=== PATIENT | female | born 1955 | race Caucasian/White ===

== ENCOUNTER → 2017-10-26 11:23 | Outpatient (CLI) | payer OTHER, SELFPAY ==
--- NOTE | 2017-10-26 | DI.MG.S_ITS ---
BILATERAL DIGITAL SCREENING MAMMOGRAM 3D/2D WITH CAD: 10/26/2017 CLINICAL: Routine screening. Family history of breast cancer. Comparison is made to exams dated: 09/02/2015 mammogram, 01/01/2009 mammogram, and 11/04/2007 mammogram - [facility]. The tissue of both breasts is extremely dense, which lowers the sensitivity of mammography. Current study was also evaluated with a Computer Aided Detection (CAD) system. There is architectural distortion in the left breast at 12 o'clock posterior depth. No other significant masses, calcifications, or other findings are seen in either breast. There has been no significant interval change. IMPRESSION: INCOMPLETE: NEEDS ADDITIONAL IMAGING EVALUATION The architectural distortion in the left breast is indeterminate. Additional views with possible ultrasound are recommended. This exam was interpreted at Station ID: [id number]. NOTE: For mammograms, a report in lay terms will be sent to the patient. Approximately 15% of breast malignancies will not be visualized mammographically. In the management of a palpable breast mass, a negative mammogram must not discourage biopsy of a clinically suspicious lesion. Electronically Signed By: Veronica thomason/:10/26/2017 12:13:46 letter sent: Additional Imaging Needed ACR BI-RADS Category 0: Incomplete 3340F
== END ==
PROVIDERS: Family Provider Family Medicine; PCP Family Medicine; Visit Provider Family Medicine
DX: Z80.3 Family history of malignant neoplasm of breast (principal)
CPT/HCPCS: 77063; 77067

== ENCOUNTER → 2017-11-14 14:23 | Outpatient (CLI) | payer OTHER, SELFPAY ==
--- NOTE | 2017-11-14 | DI.MG.S_ITS ---
UNILATERAL LEFT DIGITAL DIAGNOSTIC MAMMOGRAM 3D/2D WITH ADDITIONAL VIEWS: 11/14/2017 CLINICAL: Additional evaluation requested from prior study. Comparison is made to exams dated: 10/26/2017 mammogram, 09/02/2015 mammogram, and 01/01/2009 mammogram - [facility]. The tissue of the left breast is extremely dense, which lowers the sensitivity of mammography. There is irregular equal density architectural distortion with an indistinct margin in the left breast at 12 o'clock middle depth. This is less prominent. No other significant masses or calcifications are seen in the breast. IMPRESSION: INCOMPLETE: NEEDS ADDITIONAL IMAGING EVALUATION The irregular equal density architectural distortion in the left breast is indeterminate. An ultrasound is recommended. This exam was interpreted at Station ID: [id number]. NOTE: For mammograms, a report in lay terms will be sent to the patient. Approximately 15% of breast malignancies will not be visualized mammographically. In the management of a palpable breast mass, a negative mammogram must not discourage biopsy of a clinically suspicious lesion. Electronically Signed By: Rafael jimenez/anish:11/14/2017 15:13:29 letter sent: Need Ultrasound ACR BI-RADS Category 0: Incomplete 3340F
--- NOTE | 2017-11-14 | DI.US.S_ITS ---
ULTRASOUND OF LEFT BREAST: 11/14/2017 CLINICAL: Follow up from addtional views. Comparison is made to exams dated: 11/14/2017 mammogram, 10/26/2017 mammogram, and 09/02/2015 mammogram - [facility]. Real-time ultrasound of the left breast was performed on the area of interest. IMPRESSION: NEGATIVE There is no sonographic evidence of malignancy. There is no abnormality seen in the left breast to correspond with the mammography finding at 12 o'clock. A 1 year screening mammogram is recommended. This exam was interpreted at Station ID: [id number]. Electronically Signed By: Rafael jimenez/anish:11/14/2017 19:17:42 letter sent: Normal Exam Ultrasound BI-RADS: 1 Negative
== END ==
PROVIDERS: Family Provider Family Medicine; PCP Family Medicine; Visit Provider Family Medicine
DX: R92.8 Other abnormal and inconclusive findings on diagnostic imaging of breast (principal)
CPT/HCPCS: 76642; 77065; G0279

== ENCOUNTER 2017-12-06 13:36 | Emergency (ER) | payer OTHER, SELFPAY ==
[2017-12-06 13:46] VITALS: BP 136/76; PULSE 74; RESP 18; O2SAT 100
--- NOTE | 2017-12-06 15:36 | DI.CT.S_ITS ---
PROCEDURE: CT HEAD/BRAIN WO CON INDICATIONS: neuro changes TECHNIQUE: Noncontrast 4.5 mm thick angled axial sections acquired from the foramen magnum to the vertex, with coronal and sagittal reformats. For radiation dose reduction, the following was used: automated exposure control, adjustment of mA and/or kV according to patient size. COMPARISON: None. FINDINGS: Image quality: Excellent. CSF spaces: Basal cisterns are patent. No extra-axial fluid collections. Ventricles are normal in size and shape. Brain: No midline shift. No intracranial masses or hemorrhage. Peters-white matter interface is normal. Skull and face: Calvarium and visualized facial bones are intact, without suspicious lesions. Sinuses: Visualized sinuses and mastoids are clear. IMPRESSION: Source of altered mental status is not seen. Normal for age. Dictated by: Ronal Arnold M.D. on 12/06/2017 at 16:13 Approved by: Ronal Arnold M.D. on 12/06/2017 at 16:13
--- NOTE | 2017-12-06 18:22 | ED.NEUROSD ---
HPI - Neuro Symptoms/Deficit General Chief Complaint: Neuro Symptoms/Deficit Stated Complaint: states weird cognition issues Time Seen by Provider: 12/06/17 18:10 Source: patient Mode of arrival: ambulatory Limitations: no limitations History of Present Illness HPI Narrative: Patient is a 62-year-old female who presents with altered mental status. 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 she was able to speak to co-workers without difficulty she was able to drive herself home nobody noticed that she if she had a facial droop or not she did not have any visual changes dizziness lightheadedness chest pain or heart palpitations. Her who is an EMT did not see any signs of stroke. She took a nap her symptoms did seem to resolve but he brought her here to just check her out. She overall is feeling better but just kind of fatigued. She currently has no symptoms now. She was having thyroid issues her only medical history is hypothyroid on they did not change the dose of levothyroxine a chain time she took it she is post take it on an empty stomach she was complaining it with her iron. Review of Systems Review of Systems All systems reviewed & are unremarkable except as noted in HPI and below Constitutional Reports as per HPI, Denies body ache(s), Denies chills and Denies fever(s) Eyes Denies change in vision, Denies eye discharge, Denies irritation and Denies loss of vision Cardiovascular Denies chest pain, Denies irregular heart rhythm, Denies lightheadedness, Denies palpitations, Denies dyspnea, Denies dyspnea on exertion and Denies orthopnea Respiratory Denies cough, Denies dyspnea, Denies dyspnea on exertion and Denies wheezing Genitourinary Denies hematuria, Denies flank pain, Denies urinary incontinence and Denies urinary urgency Musculoskeletal Denies back pain, Denies muscle weakness, Denies numbness and Denies tingling Integumentary/Breasts Denies pruritus, Denies erythema, Denies rash and Denies wounds Neurologic Denies loss of vision, Denies numbness and Denies tingling Endocrine Denies palpitations Allergic/Immunologic Denies wheezing PFSH Medical History Hypothyroid (Acute) Social History Smoking Status: Never smoker Exam Initial Vital Signs Initial Vital Signs: Vital Signs Pulse Rate 74 12/06/17 13:46 Respiratory Rate 18 12/06/17 13:46 Blood Pressure 136/76 12/06/17 13:46 Pulse Oximetry 100 12/06/17 13:46 GENERAL: Well-appearing, well-nourished and in no acute distress. HEENT: Head atraumatic,EOMI, pupils reactive, face symmetric CARDIOVASCULAR: Regular rate and rhythm without murmurs, rubs or gallops. RESPIRATORY: Breath sounds equal bilaterally, no wheezes rales or rhonchi. ABDOMEN: Soft, nontender. Normoactive bowel sounds all 4 quadrants. No guarding or rebound. : No CVA tenderness EXTREMITIES: Normal range of motion, no clubbing or edema. Neurovascularly intact NEUROLOGICAL: Alert and oriented x4.Normal gait and speech. Cranial nerves II through XII grossly intact. Good lyfnot-os-vvip, good vtrv-zf-nxlr, strength equal bilaterally, no dysarthria or aphasia, sensation in tact to soft touch bilaterally, no visual changes, no facial droop SKIN: Warm, dry, no laceration, no petechiae, no rashes or lesions. Scores NIH Stroke Scale Level of Conciousness: Alert, keenly responsive Ask month/age: Answers both questions correctly. Open/close eyes, close hand: Performs both tasks correctly Best gaze horizontal: Normal Visual steward: No visual loss Facial palsy: Normal symetrical movement Left arm drift: No drift for full 10 sec Right arm drift: No drift for full 10 sec Left leg drift: No drift for full 10 sec Right leg drift: No drift for full 10 sec Limb ataxia: Absent Sensory on face/arms/legs: Normal, no sensory loss Best language: No aphasia, normal Dysarthria: Normal Extinction or inattention: No abnormality Total NIH Stroke scale score: 0 Course Orders Ordered: ED Orders 12/06/17 15:36 CT head/brain wo con Stat 12/06/17 18:55 Basic Metabolic Panel Stat Complete Blood Count AUTO DIFF Stat Vital Signs - 8 hr 12/06/17 13:46 12/06/17 19:45 Temperature 98.4 F Pulse Rate 74 72 Respiratory Rate 18 16 Blood Pressure 136/76 130/70 Pulse Oximetry 100 99 MDM - Neuro Symptoms/Deficit Lab Data Attestation: I reviewed the patient's lab results. Result diagrams: 12/06/17 18:55 12/06/17 18:55 Lab Results 12/06/17 12/06/17 Range/Units 18:55 18:55 WBC 7.2 (4.5-11.0) X10^3/uL RBC 4.68 (4.0-5.2) X10^6/uL Hgb 14.1 (12.0-16.0) g/dL Hct 42.1 (36-46) % MCV 89.8 (80-100) fL MCH 30.0 (26-34) PG MCHC 33.4 (30-36) % RDW 12.6 (11.6-14.8) % Plt Count 293 (150-400) X10^3/uL Neut % (Auto) 61.8 (50-75) % Lymph % (Auto) 26.7 (25-40) % [place] % (Auto) 7.1 (3-14) % Eos % (Auto) 2.9 (2-4) % Baso % (Auto) 1.5 (0-2) % Neut # (Auto) 4400 (4172-7798) /uL Sodium 145 (137-145) mmol/L Potassium 3.7 (3.4-5.1) mmol/L Chloride 105 (98-107) mmol/L Carbon Dioxide 28 (22-32) mmol/L BUN 14 (7-17) mg/dL Creatinine 0.70 (0.52-1.04) mg/dL Estimated GFR > 60.0 (>60) mL/min BUN/Creatinine Ratio 20.0 (6-22) Glucose 110 (80-110) mg/dL Calcium 9.8 (8.4-10.2) mg/dL Imaging Data CT scan - head: Radiologist's impression: PROCEDURE: CT HEAD/BRAIN WO CON INDICATIONS: neuro changes TECHNIQUE: Noncontrast 4.5 mm thick angled axial sections acquired from the foramen magnum to the vertex, with coronal and sagittal reformats. For radiation dose reduction, the following was used: automated exposure control, adjustment of mA and/or kV according to patient size. COMPARISON: None. FINDINGS: Image quality: Excellent. CSF spaces: Basal cisterns are patent. No extra-axial fluid collections. Ventricles are normal in size and shape. Brain: No midline shift. No intracranial masses or hemorrhage. Peters-white matter interface is normal. Skull and face: Calvarium and visualized facial bones are intact, without suspicious lesions. Sinuses: Visualized sinuses and mastoids are clear. IMPRESSION: Source of altered mental status is not seen. Normal for age. Dictated by: Ronal Arnold M.D. on 12/06/2017 at 16:13 Approved by: Ronal Arnold M.D. on 12/06/2017 at 16:13 [facility] Narrative Medical decision making narrative: Patient's symptoms have completely resolved. She had some mild confusion but no other focal deficits. I did discuss slight possibility of TIA however not completely convinced. She overall is feeling better. All lab work is reviewed no sign or symptoms of infection anemia or dehydration. I discussed all findings with the patient and spouse, Education has been performed regarding treatment plan, diagnosis, warning signs and symptoms and all concerns have been addressed. Verbally agree with and understood all of the above. Discharge Plan Departure Patient Disposition: Home Clinical Impression: Altered mental status, unspecified Discharge Date/Time: 12/06/17 19:46 Interventions: ED Discharge Assessment Last Done: 12/06/17 19:45 Instructions: DI for Transient Ischemic Attack Activity Restrictions/Additional Instructions: *You have been diagnosed with altered mental status *What to do: Symptoms have now resolved. No sign of infection or dehydration. Head CT is negative. Possible TIA which is a minor stroke, however this does seem unlikely based on your symptoms *Continue to take medications as directed *Follow up with your primary care provider in 2-3 days *Return to ER if you should have weakness, facial droop, difficulty speaking, vision changes or any new, worsening or concerning symptoms Referrals: Larry Nelson MD [Primary Care Provider] -
[2017-12-06 19:04] LABS: Add Manual Diff / Slide Review NO; Basophils Percent Auto 1.5 % (0-2); Eosinophils Percent Auto 2.9 % (2-4); Hematocrit 42.1 % (36-46); Hemoglobin 14.1 g/dL (12.0-16.0); Lymphocytes Percent Auto 26.7 % (25-40); Mean Corpuscular HGB Conc 33.4 % (30-36); Mean Corpuscular Volume 89.8 fL (80-100); Monocytes Percent Auto 7.1 % (3-14); Neutrophils Absolute Auto 4400 /uL (3000-5900); Neutrophils Percent Auto 61.8 % (50-75); Platelet Count 293 X10^3/uL (150-400); Red Blood Cell Count 4.68 X10^6/uL (4.0-5.2); Red Cell Distribution Width 12.6 % (11.6-14.8); White Blood Cell Count 7.2 X10^3/uL (4.5-11.0)
[2017-12-06 19:13] LABS: Blood Urea Nitrogen 14 mg/dL (7-17); Calcium 9.8 mg/dL (8.4-10.2); Carbon Dioxide 28 mmol/L (22-32); Chloride 105 mmol/L (98-107); Estimated Glomerular Filt Rate > 60.0 mL/min (>60); Glucose 110 mg/dL (80-110); HEMOLYSIS 20 (0-50); Potassium 3.7 mmol/L (3.4-5.1); Sodium 145 mmol/L (137-145)
[2017-12-06 19:45] VITALS: BP 130/70; PULSE 72; RESP 16; TEMP 36.9; O2SAT 99
== END 2017-12-06 19:46 | disposition home or self-care (01) ==
PROVIDERS: Emergency Provider Emergency Medicine; Family Provider Family Medicine; PCP Family Medicine
DX: R41.82 Altered mental status, unspecified (principal)
CPT/HCPCS: 36415; 70450; 80048; 85025; 99282; 99284; 99291

== ENCOUNTER → 2018-09-16 11:00 | Outpatient (CLI) | payer OTHER, SELFPAY ==
--- NOTE | 2018-09-16 11:03 | DI.RAD.S_ITS ---
PROCEDURE: XR RIBS LT MIN 3V W CXR1V INDICATIONS: LEFT RIB PAIN S/P FALL TECHNIQUE: 2 views of the left ribs were acquired, along with a single view chest. COMPARISON: None. FINDINGS: Surgical changes and devices: None. Bones and chest wall: No fractures or dislocations. Scoliosis is present. Diffuse spondylosis Lungs and pleura: No pleural effusions or pneumothorax. Lungs appear clear. Mediastinum: Mediastinal contours appear normal. Heart size is normal. IMPRESSION: No rib fracture radiographically visualized Dictated by: Aldo Becerra M.D. on 09/16/2018 at 13:14 Approved by: Aldo Becerra M.D. on 09/16/2018 at 13:18
== END ==
PROVIDERS: PCP Family Medicine; Visit Provider Family Medicine
DX: R07.81 Pleurodynia (principal); W19.XXXA Unspecified fall, initial encounter
CPT/HCPCS: 71101

== ENCOUNTER → 2018-10-08 07:00 | Outpatient (CLI) | payer OTHER, SELFPAY ==
[2018-10-08 07:56] LABS: Alanine Aminotransferase 16 IU/L (9-52); Albumin 4.2 g/dL (3.5-5.0); Albumin Globulin Ratio 1.6 (1.0-2.8); Alkaline Phosphatase 117 U/L (38-126); Aspartate Aminotransferase 21 IU/L (14-36); BUN Creatinine Ratio 27.1 (6-22); Bilirubin Total 1.2 mg/dL (0.2-1.3); Blood Urea Nitrogen 19 mg/dL (7-17); Calcium 9.3 mg/dL (8.4-10.2); Carbon Dioxide 29 mmol/L (22-32); Chloride 103 mmol/L (98-107); Cholesterol 207 mg/dL (140-199); Estimated Glomerular Filt Rate > 60.0 mL/min (>60); Globulin 2.7 g/dL (1.7-4.1); Glucose 87 mg/dL (80-110); HDL Cholesterol 47 mg/dL (40-60); HEMOLYSIS < 15 (0-50); LDL Cholesterol Calculated 142 mg/dL (<100); Potassium 3.9 mmol/L (3.4-5.1); Sodium 142 mmol/L (137-145); Total Protein 6.9 g/dL (6.3-8.2); Triglycerides 89 mg/dL (35-150)
[2018-10-08 07:57] LABS: Hemoglobin A1C% w Est Avg Glu 5.3 % (4.0-6.0)
[2018-10-08 09:02] LABS: Thyroid Stimulating Hormone 0.97 uIU/mL (0.47-4.68)
== END ==
PROVIDERS: PCP Family Medicine; Visit Provider Family Medicine
DX: E03.9 Hypothyroidism, unspecified (principal); Z13.1 Encounter for screening for diabetes mellitus; E78.5 Hyperlipidemia, unspecified
CPT/HCPCS: 36415; 80053; 80061; 83036; 84443

== ENCOUNTER → 2020-08-03 15:49 | Outpatient (CLI) | payer OTHER, SELFPAY ==
--- NOTE | 2020-08-03 15:51 | DI.MG.S_ITS ---
BILATERAL DIGITAL SCREENING MAMMOGRAM 3D/2D WITH CAD: 08/03/2020 CLINICAL: Routine screening. Family history of breast cancer. Comparison is made to exams dated: 11/14/2017 mammogram, 10/26/2017 mammogram, and 09/02/2015 mammogram - [facility]. The tissue of both breasts is heterogeneously dense. This may lower the sensitivity of mammography. Current study was also evaluated with a Computer Aided Detection (CAD) system. No significant masses, calcifications, or other findings are seen in either breast. There has been no significant interval change. IMPRESSION: NEGATIVE There is no mammographic evidence of malignancy. A 1 year screening mammogram is recommended. This exam was interpreted at Station ID: [id number]. NOTE: For mammograms, a report in lay terms will be sent to the patient. Approximately 15% of breast malignancies will not be visualized mammographically. In the management of a palpable breast mass, a negative mammogram must not discourage biopsy of a clinically suspicious lesion. Electronically Signed By: Danielle smith/anish:08/03/2020 16:17:30 letter sent: Normal Exam ACR BI-RADS Category 1: Negative 3341F
== END ==
PROVIDERS: PCP Family Medicine; Referring Provider Family Medicine; Visit Provider Family Medicine
DX: Z12.31 Encounter for screening mammogram for malignant neoplasm of breast (principal); Z80.3 Family history of malignant neoplasm of breast
CPT/HCPCS: 77063; 77067

== ENCOUNTER → 2021-11-24 16:06 | Outpatient (CLI) | payer OTHER, SELFPAY ==
--- NOTE | 2021-11-24 16:14 | DI.MG.S_ITS ---
BILATERAL DIGITAL SCREENING MAMMOGRAM 3D/2D WITH CAD: 11/24/2021 CLINICAL: Routine screening. Family history of breast cancer. Comparison is made to exams dated: 08/03/2020 mammogram, 10/26/2017 mammogram, and 09/02/2015 mammogram - [facility]. Both breasts are heterogeneously dense, which may obscure small masses (category c / 51-75% glandular tissue). Current study was also evaluated with a Computer Aided Detection (CAD) system. No significant masses, calcifications, or other findings are seen in either breast. There has been no significant interval change. IMPRESSION: NEGATIVE There is no mammographic evidence of malignancy. A 1 year screening mammogram is recommended. Based on Tyrer-Cuzick model (a risk assessment model), the patient's lifetime risk is 24.3% and her 10 year risk is 12.3%. If a patient has an elevated risk, a more comprehensive evaluation should be considered and/or a referral to a genetic counselor. The [place] [employer], [employer] [place] [employer], and NCCN Guidelines advise the consideration of Breast MRI as an adjunct to screening mammography in patients whose Lifetime risk to develop breast cancer is 20% or higher. This exam was interpreted at Station ID: [id number]. NOTE: For mammograms, a report in lay terms will be sent to the patient. Approximately 15% of breast malignancies will not be visualized mammographically. In the management of a palpable breast mass, a negative mammogram must not discourage biopsy of a clinically suspicious lesion. Electronically Signed By: Veronica thomason/anish:11/25/2021 16:02:19 letter sent: Normal Exam ACR BI-RADS Category 1: Negative 3341F
== END ==
PROVIDERS: PCP Family Medicine; Referring Provider Family Medicine; Visit Provider Family Medicine
DX: I10 Essential (primary) hypertension (principal); Z12.31 Encounter for screening mammogram for malignant neoplasm of breast; Z80.3 Family history of malignant neoplasm of breast
CPT/HCPCS: 77063; 77067

== ENCOUNTER → 2023-04-18 15:22 | Outpatient (CLI) | payer OTHER, SELFPAY ==
--- NOTE | 2023-04-18 15:25 | DI.RAD.S_ITS ---
PROCEDURE: XR HIP W PEL IF DONE RT 2V INDICATIONS: bilateral hip pain, sciatica TECHNIQUE: AP pelvis with lateral view(s) of the right hip(s). COMPARISON: None. FINDINGS: Bones: No fractures or dislocations. Severe degenerative changes of the right hip with joint space narrowing, subchondral sclerosis and marginal spurring. Mild degenerative changes of the left hip. Diffusely decreased osseous mineralization. Pelvic ring appears intact. No suspicious bony lesions. Partially visualized spinal hardware. Soft tissues: The visualized bowel gas pattern is normal. No suspicious soft tissue calcifications. IMPRESSION: No acute osseous abnormalities. Severe degenerative changes of the right hip. Dictated by: Yaakov Rodriguez M.D. on 04/18/2023 at 16:27 Approved by: Yaakov Rodriguez M.D. on 04/18/2023 at 16:28
--- NOTE | 2023-04-18 15:25 | DI.RAD.S_ITS ---
PROCEDURE: XR FEMUR RT MIN 2V INDICATIONS: bilateral hip pain, sciatica TECHNIQUE: For views of the femur were acquired. COMPARISON: None. FINDINGS: Bones: No fractures or dislocations. Severe degenerative changes of the right hip No suspicious bony lesions. Soft tissues: No suspicious soft tissue calcifications or masses. IMPRESSION: No acute bony abnormality. Severe degenerative changes of the right hip. Dictated by: Yaakov Rodriguez M.D. on 04/18/2023 at 16:30 Approved by: Yaakov Rodriguez M.D. on 04/18/2023 at 16:32
--- NOTE | 2023-04-18 15:25 | DI.RAD.S_ITS ---
PROCEDURE: XR LUMBAR SPINE 2-3V INDICATIONS: bilateral hip pain, sciatica TECHNIQUE: 3 views of the lumbar spine were acquired. COMPARISON: None. FINDINGS: Bones: 5 [id number]-glb-lvtkhhp vertebrae are present. Focal dextrocurvature of the upper lumbar spine. Diffusely decreased osseous mineralization. There is multilevel facet arthropathy, worse at L4-5 and L5-S1. Mild multilevel disc height loss with degenerative endplate changes and spurring is present. No vertebral body compression fractures. No suspicious bony lesions. Spinal hardware in place and appears intact. Soft tissues: Overlying bowel gas pattern is normal. No suspicious soft tissue calcifications. IMPRESSION: Multilevel degenerative changes of the lumbar spine. No acute osseous abnormalities. Dictated by: Yaakov Rodriguez M.D. on 04/18/2023 at 16:28 Approved by: Yaakov Rodriguez M.D. on 04/18/2023 at 16:29
== END ==
PROVIDERS: PCP Family Medicine; Referring Provider Family Medicine; Visit Provider Family Medicine
DX: M54.31 Sciatica, right side (principal); M47.816 Spondylosis without myelopathy or radiculopathy, lumbar region; M47.817 Spondylosis without myelopathy or radiculopathy, lumbosacral region; M79.604 Pain in right leg; M25.551 Pain in right hip
CPT/HCPCS: 72100; 73502; 73552

== ENCOUNTER → 2023-05-01 13:31 | Outpatient (CLI) | payer OTHER, SELFPAY ==
[2023-05-01 14:53] LABS: Add Manual Diff / Slide Review NO; Basophils Absolute Auto 100 /uL (0-100); Basophils Percent Auto 0.8 % (0-2); Eosinophils Absolute Auto 100 /uL (0-450); Eosinophils Percent Auto 1.8 % (2-4); Hematocrit 36.5 % (36-46); Hemoglobin 12.2 g/dL (12.0-16.0); Lymphocytes Absolute Auto 1500 /uL (1100-4500); Lymphocytes Percent Auto 18.4 % (25-40); Mean Corpuscular HGB Conc 33.3 % (30-36); Mean Corpuscular Hemoglobin 26.8 PG (26-34); Mean Corpuscular Volume 80.5 fL (80-100); Monocytes Absolute Auto 600 /uL (0-900); Monocytes Percent Auto 6.9 % (3-14); Neutrophils Absolute Auto 5800 /uL (1500-7000); Neutrophils Percent Auto 72.1 % (50-75); Platelet Count 336 X10^3/uL (150-400); Red Blood Cell Count 4.53 X10^6/uL (4.0-5.2); Red Cell Distribution Width 15.3 % (11.6-14.8)
[2023-05-01 15:04] LABS: Albumin 4.4 g/dL (3.5-5.0); Blood Urea Nitrogen 15 mg/dL (7-17); Calcium 9.5 mg/dL (8.4-10.2); Carbon Dioxide 24 mmol/L (22-32); Chloride 103 mmol/L (98-107); Estimated Glomerular Filt Rate > 60 mL/min (>60); Glucose 112 mg/dL (80-110); HEMOLYSIS < 15 (0-50); Sodium 139 mmol/L (137-145)
[2023-05-01 15:11] LABS: Prealbumin 22.9 mg/dL (17.6-36.0)
[2023-05-01 16:42] LABS: Vitamin D 25 Hydroxy (D3) 55.7 ng/mL (30.0-100.0)
[2023-05-03 03:19] LABS: x Labcorp Estim. Avg Glu (eAG) 123 mg/dL (.); x Labcorp Hemoglobin A1c 5.9 % (4.8-5.6)
== END ==
PROVIDERS: PCP Family Medicine; Referring Provider Orthopaedic Surgery Adult Reconstructive Orthopaedic Surgery; Visit Provider Orthopaedic Surgery Adult Reconstructive Orthopaedic Surgery
DX: Z01.818 Encounter for other preprocedural examination (principal); E55.9 Vitamin D deficiency, unspecified; R73.9 Hyperglycemia, unspecified; R77.0 Abnormality of albumin; Z01.812 Encounter for preprocedural laboratory examination
CPT/HCPCS: 36415; 80048; 82040; 82306; 83036; 84134; 85025; 93005; 93010

== ENCOUNTER → 2023-05-14 11:12 | Outpatient (CLI) | payer OTHER, SELFPAY ==
--- NOTE | 2023-05-14 | DI.RAD.S_ITS ---
Bone Density Report Name: CHONG WALTERS Age: 67 Sex: Female Ethnicity: White Date of : 1955 Indication: postmenopausal; screening for osteoporosis; Referring Provider: CANDI GALLO Study: Bone densitometry was performed. Exam Date: May 14, 2023 Accession number: [id number] Bone Density: Region BMD T-score Z-score Classification Femoral Neck (Left) 0.468 -3.4 -1.8 Osteoporosis Total Hip (Left) 0.574 -3.0 -1.7 Osteoporosis Femoral Neck (Right) 0.556 -2.6 -1.0 Osteoporosis Total Hip (Right) 0.527 -3.4 -2.1 Osteoporosis Total Hip Mean 0.550 -3.2 -1.9 Osteoporosis Total Forearm (Left) 0.330 -4.6 -2.9 Osteoporosis 1/3 Forearm (Left) 0.453 -4.0 -2.2 Osteoporosis UD Forearm (Left) 0.265 -3.1 -1.8 Osteoporosis World Health Organization criteria for BMD impression classify patients as: Normal (T-score at or above -1.0), Osteopenia (T-score between -1.0 and -2.5), or Osteoporosis (T-score at or below -2.5). 10-year Fracture Risk: FRAX not reported because: Some T-score for Spine Total or Hip Total or Femoral Neck at or below -2.5 Previous Exams: -- Region Exam Age BMD T-score BMD Change BMD Change Date g/cm2 vs Baseline vs Previous -- Total Hip(Left) 05/14/2023 67 0.574 -3.0 -0.273 (-32.3%)# -0.273 (-32.3%)# 09/06/2006 51 0.847 -0.8 Total Hip(Right) 05/14/2023 67 0.527 -3.4 -0.362 (-40.7%)# -0.362 (-40.7%)# 09/06/2006 51 0.889 -0.4 -- *Denotes significance at 95% confidence level, LSC for Total Hip = 0.027 g/cm2 # Denotes dissimilar scan types or analysis methods Impression: The patient has osteoporosis, based on the Right Total Hip T-score. No significant bone loss was observed. Discussion: HIGH RISK OF FRACTURE. BONE DENSITY IS UNDESIRABLY LOW AT ONE OR MORE SKELETAL SITES, CONSISTENT WITH OSTEOPOROSIS. ALSO, BONE DENSITY IS LOWER THAN EXPECTED FOR AGE AND SEX AT ONE OR MORE SKELETAL SITES; RECOMMEND A DILIGENT SEARCH FOR SECONDARY CAUSES OF BONE LOSS. This patient's lowest T-score meets the World Health Organization's (WHO) criteria for osteoporosis at one or more sites (T-score -2.5 or below). In untreated patients, the risk of osteoporotic fracture increases approximately two-fold for each 1.0 SD decrease in T-score. Low bone density is not the only risk factor for fracture; also consider factors such as patient's age, frailty or poor health, risk of falling, risk of injury, previous osteoporotic fracture, family history of osteoporosis, cigarette smoking, low body weight, etc. Not everyone with low bone mineral density has osteoporosis; osteomalacia and other metabolic bone disorders should also be considered. Patients who have osteoporosis should be evaluated for specific diseases and conditions (secondary causes) that may cause or contribute to bone loss. The [place] Association of Clinical Endocrinologists (AACE) and National Osteoporosis Foundation (NOF) recommend pharmacologic intervention for all postmenopausal women whose T-score is in this range. Also, this patient's bone mineral density is below the range considered normal for healthy age-, sex-, and race-matched controls at least one site (Z-score -2.0 or below). This warrants careful evaluation for diseases and conditions that may contribute to accelerated bone loss. The patient should follow a healthful lifestyle (good nutrition with adequate calcium and vitamin D, and appropriate weight-bearing exercise). Follow-Up: Consider a repeat BMD and Vertebral Fracture Assessment (VFA) exam in 2 years or sooner if medically necessary, to reassess this patient's status. Reported by: TR STRICKLAND M.D. on 05/14/2023 11:43:00 AM.
== END ==
LOC: RAD 11:12
PROVIDERS: PCP Family Medicine; Referring Provider Orthopaedic Surgery Adult Reconstructive Orthopaedic Surgery; Visit Provider Orthopaedic Surgery Adult Reconstructive Orthopaedic Surgery
DX: M81.0 Age-related osteoporosis without current pathological fracture (principal)
CPT/HCPCS: 77080

== ENCOUNTER 2023-06-29 08:59 | Day surgery (SDC) | payer OTHER, SELFPAY ==
[2023-06-20 12:40] VITALS: BMI 20.2
[2023-06-29] VITALS (15 sets, daily range): BP systolic 101–149; BP diastolic 43–87; PULSE 67–81; RESP 12–18; TEMP 35.7–36.7; O2SAT 91–100
--- NOTE | 2023-06-29 | DI.RAD.S_ITS ---
PROCEDURE: XR HIP W PEL IF DONE RT 2V INDICATIONS: TOTAL HIP RIGHT TECHNIQUE: AP pelvis and lateral view of the hip acquired. COMPARISON: [facility], ALFA, XR HIP W PEL IF DONE RT 2V, 06/29/2023, 12:21. [facility], CR, XR HIP W PEL IF DONE RT 2V, 04/18/2023, 15:38. FINDINGS: Bones: Patient is status post right hip arthroplasty, with hardware components in expected positions. The hip joint appears congruent. The visualized bony structures appear intact. Soft tissues: Overlying postoperative changes are noted. No suspicious soft tissue densities. IMPRESSION: Expected post-operative appearance of a hip arthroplasty. Dictated by: Ágnel Gilmore M.D. on 06/29/2023 at 16:03 Approved by: Ángel Gilmore M.D. on 06/29/2023 at 16:03
--- NOTE | 2023-06-29 06:00 | DI.RAD.S_ITS ---
PROCEDURE: XR HIP W PEL IF DONE RT 2V INDICATIONS: MICHELE TECHNIQUE: Fluoroscopic guidance utilized for a right total hip arthroplasty COMPARISON: None. FINDINGS: Fluoroscopic images submitted for a right total hip arthroplasty, with trial components in place. Please see operative note for further discussion. IMPRESSION: Fluoroscopic guidance. Please see operative note. Dictated by: Ángel Gilmore M.D. on 06/29/2023 at 14:48 Approved by: Ángel Gilmore M.D. on 06/29/2023 at 14:48
[2023-06-29] MEDS: LACTATED RINGERS 1,000 ML 42 ML IV ×2 (09:45→12:51)
[2023-06-29] MEDS: MELOXICAM 7.5 MG TABLET PO (09:52)
[2023-06-29] MEDS: ACETAMINOPHEN 325 MG TABLET 975 MG PO (09:53)
[2023-06-29 10:34] LABS: BUN Creatinine Ratio 20.5 (6-22); Blood Urea Nitrogen 16 mg/dL (7-17); Calcium 9.1 mg/dL (8.4-10.2); Carbon Dioxide 27 mmol/L (22-32); Chloride 107 mmol/L (98-107); Estimated Glomerular Filt Rate > 60 mL/min (>60); Glucose 91 mg/dL (80-110); HEMOLYSIS < 15 (0-50); Sodium 137 mmol/L (137-145)
[2023-06-29 10:35] LABS: Potassium 3.5 mmol/L (3.4-5.1)
--- NOTE | 2023-06-29 11:03 | PM.PREOP ---
Pre-operative Note Interval Note History & Physical reviewed/Exam performed by Physician: Yes Changes to H&P: No
[2023-06-29] MEDS: CEFAZOLIN 2 GM/100 ML PREMIX 100 ML IV ×2 (11:30→19:43)
[2023-06-29] MEDS: TRANEXAMIC ACID 1,000 MG VIAL 1000 MG INJ ×2 (11:35→13:15)
--- NOTE | 2023-06-29 12:11 | SUR.OPER ---
Patient supine on padded [place] table, one arm on padded arm board at <90, other arm padded and secured with tape across patient's chest, both legs secured in padded traction boots and positioned per surgeon, padded post at patient's groin, pressure points checked and padded.
[2023-06-29] MEDS: ROPIVACAINE/EPI/CLONIDINE/KET 50 ML SYRINGE INJ (12:33)
--- NOTE | 2023-06-29 13:29 | P.OP_ITS ---
Operative Date/Time/Diagnoses Date of procedure: 06/29/23 Pre-op diagnosis: Right hip osteoarthritis Post-op diagnosis: same Procedure & Clinicians Procedure: Right total hip arthroplasty (46102) Same procedure as scheduled: Yes Surgeon: Andrew Mckeon Shank Stitcher: Shira Victoria Anesthesia Type: General and Local Operative Notes Estimated Blood Loss (mL): 500 Procedure in detail: Right Hybrid Direct Anterior Total Hip Arthroplasty with Uncemented Acetabular Component and Cemented Femoral Component: Implants: * Depuy [place] Gription size 52 cup? * Depuy C Stem femoral stem size 2 standard offset? * 36 mm +1.5 ceramic femoral head? Procedure Summary: This 67-year-old female patient had debilitating symptoms secondary to end-stage arthritis in her right hip. She had a history of prior scoliosis surgery in adolescents with placement of a Schrader angy that balanced on her pelvis. She was evaluated preoperatively and I felt that her pain was attributable to her hip based on physical examination findings. This correlated with radiographic degeneration in the hip joint. A DEXA scan was obtained in preparation for her surgery which demonstrated a T-score of-3.4 in her right hip indicative of significant osteoporosis at her surgical site. I therefore utilized screws and her acetabular cup and cemented her femoral stem in place. Stability, leg length, offset, canal fill were all appropriate with the templated implants. She has an allergy to Vicryl sutures so monofilament sutures were used for the entirety of her closure. Procedure in Detail: This patient was seen preoperatively and evaluated for hip pain which was refractory to numerous nonoperative treatment modalities. Their hip pain correlated with radiographic changes demonstrating significant degeneration in the hip joint. The risks and benefits of continued nonoperative management versus operative management were discussed at length and all of the patient?s questions were answered. Additional educational materials providing further details beyond our discussion in clinic were provided via a publicly available patient education video which included the incidence of medical complications associated with total hip arthroplasty, reasons for revision following total hip arthroplasty, and patient satisfaction rates following total hip arthroplasty. That video can be accessed at [email or web address] . With this understanding of the risks inherent to the procedure, the patient elected to move forward with operative management. Following preoperative optimization, the patient was scheduled for surgery. The patient was met in the preoperative holding area the day of the procedure and all questions were answered. The patient?s nares were swabbed with betadine in order to decolonize them from MRSA. Informed consent was signed and the operative limb was marked with indelible ink.? The patient was brought back to the operating room where anesthesia was induced. The patient was transferred to the [place] table and all bony prominences were padded. The operative site was prepped and draped in the usual sterile fashion. Prior to incision, tranexamic acid and cefazolin were administered. Operative templating images were displayed demonstrating the anticipated implant sizes and correct operative extremity. A timeout procedure was performed verifying the patient?s identity, medical comorbidities, allergies, relevant medications, anesthesia type and the surgical plan. All present were in agreement. The assistance of a physician patient support assistant was required for positioning, room setup, soft tissue retraction and wound closure. Without this assistance, the procedure would have been significantly more challenging and time consuming.?? A direct anterior approach to the hip was utilized. This was performed with a longitudinal incision through a Heuter interval. The incision was planned 2 cm distal and 2 cm lateral to the ASIS extending towards the lateral patella, in line with the muscle body of the TFL. Following incision, the subcutaneous tissue was dissected while taking care to avoid injury to the lateral femoral cutaneous nerve. The fascia overlying the TFL was identified by dissecting off the overlying fat and identifying perforating vessels to the TFL. The TFL fascia was incised and dissected away from the medial border of the TFL. A cobra retractor was placed over the superior femoral neck between the abductors and the hip capsule and used to reflect the TFL laterally. A [place] self-retainer was then placed in the distal aspect of the wound between the TFL and the rectus femoris. This was tensioned to open up the direct anterior interval and the lateral circumflex vessels were identified and coagulated using electrocautery. The floor of the TFL fascia was incised, exposing the pericapsular fat overlying the hip capsule. A second cobra retractor was placed on the inferior femoral neck. A double-bent soft tissue retractor was placed on the anterior wall of the acetabulum and used to tension the reflected head of rectus femoris, which was then released in order to limit soft tissue tension. A capsulotomy was made in the midline of the anterior hip capsule in line with the femoral neck ending at the vastus tubercle. The double-bent retractor was removed in order to limit the amount of time that a soft tissue retractor remained on the anterior wall and protect the femoral nerve. Tag stitches were placed in the superior and inferior leaflets of the hip capsule. An [place] soft tissue retractor was introduced over the tag stitches and tensioned in the interval between the rectus femoris and the TFL in order to retract and protect those muscles. The cobra retractors were replaced intracapsularly, with one over the superior neck in the pocket created by the base of the greater trochanter and the other on the femoral head. The capsulotomy was extended laterally to the base of the greater trochanter and medially to the lesser trochanter. This required externally rotating the hip. Once the lesser trochanter had been identified, a neck cut was planned according to measurements from preoperative templating. A ruler was cut at the length measured between the superior aspect of the lesser trochanter and the collar of the prosthesis. This line was extended towards the inferior aspect of the lateral cobra retractor to plan a cut which would leave minimal residual femoral neck laterally. The neck was cut at 60 degrees of external rotation along that line. A second cut was performed to remove a large napkin ring and facilitate head extraction. The napkin ring cut and femoral head were removed.?? A broad anterior wall retractor was placed between the labrum and the anterior capsule so that the anterior capsule would prevent capturing and pinching the femoral nerve anteriorly. An additional retractor was placed on the posterior wall. External rotation and traction were applied through the [place] table so that the cut surface of the femoral neck would not restrict access to the acetabulum. The labrum was excised sharply and the pulvinar was excised with electrocautery to limit bleeding from branches of the obturator artery. Acetabular reamers were selected based on preoperative templating and measurements of the excised femoral head. These were introduced into the acetabulum. Fluoroscopy was utilized to replicate a standing AP pelvis radiograph by centering over the pelvis, rotating until there was appropriate symmetry between the obturator foramen, and introducing caudal tilt to match the position of the pubic symphysis relative to the sacrococcygeal junction according to the patient?s anatomy. Fluoroscopy was utilized to ensure appropriate reaming depth. Once satisfied with the reaming depth corresponding to the preoperative template and the pinch fit between the columns, an appropriate sized acetabular cup was selected which would provide 1 mm of press-fit. This cup was introduced and manipulated until appropriate abduction and anteversion angles were obtained with careful attention to appropriate abduction and anteversion angles as evaluated by the position of the cup relative to the anterior and posterior gao of the acetabulum and the AP fluoroscopy which recreated the patient?s standing radiograph. The cup was impacted into place. Two screws were placed to provide additional fixation. Peripheral osteophytes were removed. The acetabular liner was then placed with care to ensure locking of the locking mechanism.? Attention was then turned to the femur. All retractors were removed, traction was released, a retractor was placed in the interval between the hip capsule and the gluteus minimus, and the hip was externally rotated to 90 degrees. Traction was applied through the [place] table to tension the lateral capsule and this was released using electrocautery. Traction was released and a [place] hook was placed posteriorly around the proximal femur at the level of the vastus ridge. The table height was lowered in order to restrict the tension on the anterior structures during hip hyperextension to limit the risk of femoral nerve palsy. With traction off and the hip at 90 degrees of external rotation, the hip was hyperextended and adducted while manually elevating the femur away from the acetabulum with the [place] hook to ensure it would not be caught behind the greater trochanter. An asymmetric retractor was placed over the calcar and a broad double-pronged retractor was placed over the greater trochanter. The tag stitch capturing the lateral leaflet of the capsule was moved to the medial side, leaving the conjoined and piriformis tendons isolated in the face of the greater trochanter. The hip was externally rotated and elevated. A release of the conjoined tendon was not necessary in order to obtain adequate exposure for broaching. The canal was opened with an opening broach and a rasp was used to remove cancellous bone. A rongeur was used to remove the residual lateral bone at the base of the greater trochanter to avoid placing the stem in varus. The femur was then broached to the appropriate sized stem yielding good rotational fit and fill of the canal as well as appropriate version of the stem trial. Neck and head trials were placed, all retractors were removed and the hip was returned to neutral abduction and extension. I then reduced the hip. An AP pelvis fluoroscopic image matching the preoperative standing radiograph was obtained with both lesser trochanters visible and both hips in 40 degrees of external rotation. This demonstrated appropriate leg length and offset. An AP hip fluoroscopic image was obtained with the hip in neutral rotation which demonstrated good canal fill. Hip stability was evaluated with 140 degrees of external rotation and a 45 degree drop test which demonstrated no instability. The hip was dislocated and I returned to the broaching position. The canal was irrigated with a canal brush. A cement restrictor was placed. The canal was again irrigated with a canal brush. A whistle tip catheter was placed down the canal. Epinephrine soaked vaginal packing was placed down the canal. The vaginal packing was removed and cement was placed down the canal. The whistletip catheter was then removed. The cement was manually pressurized and then pressurized with the cement gun. The definitive stem was placed and the cement was allowed to dry. Excess cement was removed. Repeat trialing was performed to ensure appropriate head selection following placement of the definitive cemented stem. I returned to the broaching position. The trunnion was cleaned and dried. I placed a ceramic head onto the trunnion and impacted it in to place on the Joy taper.??All retractors were removed and the hip was reduced. A dilute mixture of betadine and peroxide was used to bathe the soft tissues during final fluoroscopic assessment. Appropriate component positioning was confirmed on an AP pelvis radiograph with the operative and nonoperative legs in 40 degrees of external rotation, evaluating leg length and offset. Appropriate stem fill was evaluated on an AP hip radiograph with the operative leg in neutral rotation. No fractures were identified on these radiographs. Stability was satisfactory with a 90 degree external rotation test as well as a 45 degree drop test. The hip was copiously irrigated with pulse lavage. The capsule was closed with absorbable interrupted suture. The TFL fascia was closed with barbed suture wh ile carefully protecting the lateral femoral cutaneous nerve from entrapment. A mixture of Ropivacaine, Epinephrine, Clonidine and Toradol was infiltrated throughout the soft tissues. The skin was closed with 2-0 and 3-0 sutures. Surgical glue was applied and a soft dressing was placed.??The sponge, instrument and needle counts were reported as being correct at the end of the case.??No obvious complications occurred. The patient was transferred from the [place] table back to a stretcher. The patient emerged from anesthesia without difficulty and was taken to the PACU in a stable condition.? Plan for aftercare: * Anterior hip precautions * Weightbearing as tolerated * Mobilization as soon as the patient has recovered from anesthesia. If physical therapists are unavailable at the time the patient is ready to ambulate, then nursing staff should help patient ambulate * Aspirin 81 twice per day for DVT prophylaxis * Multimodal pain regimen with no IV opioids ordered * Anticipate discharge home tomorrow * Follow up at [facility] in 2 weeks * Detailed postoperative instructions available at [email or web address]
[2023-06-29] MEDS: hydrOXYzine 50 MG/ML INJ 25 MG IM (13:58)
[2023-06-29] MEDS: OXYCODONE IR 5 MG TABLET PO (13:59)
[2023-06-29] MEDS: ONDANSETRON 4 MG/2 ML INJ IV (14:11)
[2023-06-29 15:00] LABS: Hematocrit 31.5 % (36-46); Hemoglobin 10.2 g/dL (12.0-16.0); Mean Corpuscular HGB Conc 32.2 % (30-36); Mean Corpuscular Hemoglobin 26.8 PG (26-34); Mean Corpuscular Volume 83.2 fL (80-100); Platelet Count 296 X10^3/uL (150-400); Red Blood Cell Count 3.79 X10^6/uL (4.0-5.2); Red Cell Distribution Width 15.5 % (11.6-14.8); White Blood Cell Count 16.4 X10^3/uL (4.5-11.0)
[2023-06-29] MEDS: IBUPROFEN 600 MG TABLET PO ×2 (16:04→22:24)
[2023-06-29] MEDS: ACETAMINOPHEN 325 MG TABLET 650 MG PO ×2 (16:04→22:24)
--- NOTE | 2023-06-29 16:30 | PC.NURSE ---
Patient is doing well in bed. Her anterior dressing to her hip is cdi. Patient has a secon iv to her r.forearm started in case patient needed blood. She had an estimated 1200 blood loss in surgery and her H & H is 10.2 and 31.5. She is not complaining of feeling syncopal at this time and has LR at 100cc/hr infusing. is at patients bedside and she has voided 200cc of urine in the bedpan.
[2023-06-29] MEDS: LACTATED RINGERS 1,000 ML 100 ML IV (19:42)
[2023-06-29] MEDS: ASPIRIN EC 81 MG TABLET PO (20:03)
--- NOTE | 2023-06-29 23:30 | PM.PN.1 ---
Subjective Subjective Interval history: Patient seen postoperatively. Resting comfortably. No acute distress. Ice machine running on her anterior thigh. Reports minimal discomfort. Ambulated to and from the bathroom without difficulty. Sensation intact to light touch in L2 through S1 nerve distributions. Flexion and extension of hallux ankle and knee all intact. Dressing clean dry and intact. Anticipate mobilization tomorrow morning and discharge home Exam Vital Signs (past 8 hours): - 06/29/23 16:30 06/29/23 17:30 06/29/23 20:00 Temperature 97.3 F L 97.1 F L Pulse Rate 75 77 76 Respiratory Rate 18 18 16 Blood Pressure 120/64 116/64 133/79 Pulse Oximetry 96 96 97 Oxygen Flow Rate 0 0 0 Oxygen Delivery Method Nasal Cannula Oxygen Flow Rate 0 Objective Labs 06/29/23 14:45 06/29/23 10:08 Labs: Laboratory Results - last 24 hr 06/29/23 06/29/23 10:08 14:45 WBC 16.4 H RBC 3.79 L Hgb 10.2 L Hct 31.5 L MCV 83.2 MCH 26.8 MCHC 32.2 RDW 15.5 H Plt Count 296 Sodium 137 Potassium 3.5 Chloride 107 Carbon Dioxide 27 BUN 16 Creatinine 0.78 Estimated GFR > 60 BUN/Creatinine Ratio 20.5 Glucose 91 Calcium 9.1 PFSH Medical History (Updated 06/20/23 @ 13:10 by Holly Kang RN) Osteoarthritis Heart murmur Elevated blood pressure reading without diagnosis of hypertension Hypothyroid Surgical History (Updated 06/20/23 @ 13:12 by Holly Kang RN) Hx of colonoscopy Hx of foot surgery History of back surgery (1971) Hx of bilateral cataract extraction Social History household members: spouse Smoking Status: Never smoker alcohol intake: current Quality VTE Deep Vein Thrombosis/Pulmonary Embolism Present on Admission: No
[2023-06-30] VITALS (7 sets, daily range): BP systolic 63–142; BP diastolic 36–79; PULSE 70–81; RESP 16–18; TEMP 36.1–36.8; O2SAT 95–100
[2023-06-30] MEDS: ACETAMINOPHEN 325 MG TABLET 650 MG PO ×4 (03:54→21:22)
[2023-06-30] MEDS: CEFAZOLIN 2 GM/100 ML PREMIX 100 ML IV (03:55)
[2023-06-30] MEDS: IBUPROFEN 600 MG TABLET PO ×4 (03:55→21:21)
[2023-06-30] MEDS: LEVOTHYROXINE 75 MCG TABLET PO (05:51)
[2023-06-30 06:48] LABS: Hematocrit 28.2 % (36-46); Hemoglobin 9.4 g/dL (12.0-16.0)
--- NOTE | 2023-06-30 09:00 | PT.IIE ---
Current Diagnoses Unilateral primary osteoarthritis, right hip (06/29/23) Surgery Performed Operation Date: 06/29/23 10:45 Actual Procedures p Total Hip Arthroplasty/Anterior Approach(Right) - Andrew Mckeon MD Surgical History (Last Reviewed 06/30/23 @ 10:17 by Michael Sousa PA-C) History of back surgery (1971) Hx of bilateral cataract extraction Hx of colonoscopy Hx of foot surgery Medical History (Last Reviewed 06/30/23 @ 10:17 by Michael Sousa PA-C) Elevated blood pressure reading without diagnosis of hypertension Heart murmur Hypothyroid Osteoarthritis Physical Therapy Inpatient Evaluation/Re-Eval M1 PT/OT-IP Prior Functional Status Start: 06/30/23 13:39 Freq: NEEDED Status: Active Protocol: Document 06/30/23 09:00 AB (Rec: 06/30/23 13:50 AB [id number]) Medical Review Prior Functional Status Medical History Reviewed Yes Communication able to make needs known Mobility and Gait pt stated that she was independent with all mobilities and ambulation without AD Social History Household Members spouse Living Arrangements House Number of Floors (Floors) One Floor Number of Stairs To Enter/Railing? ramp to enter Home Environment Standard Height Toilet,Walk in Shower,Ramp Home Equipment Front Wheel Walker,Quad Cane, Straight Cane,Hand Held Shower ,Grab Bars In Shower Additional Social History Comment pt has a toilet safety frame pt with high bed M2 PT-IP Current Condition Start: 06/30/23 13:39 Freq: NEEDED Status: Active Protocol: Document 06/30/23 09:00 AB (Rec: 06/30/23 13:50 AB [id number]) Physical Therapy Current Condition Current Condition Evaluation Date 06/30/23 Treatment Diagnosis s/p R MICHELE anterior; difficulty in walking Onset Date 06/29/23 M3 PT-IP Subjective Start: 06/30/23 13:39 Freq: NEEDED Status: Active Protocol: Document 06/30/23 09:00 AB (Rec: 06/30/23 13:50 AB [id number]) Subjective Physical Therapy Visit Type Type Initial Evaluation Visit Start Time 09:00 Visit Stop Time 09:57 Number of COST COORDINATOR Visits 0 Physical Therapy Visit Comments Patient Comments agreeable to do PT Therapy Pain Assessment Pain When Pain Assessed At Rest Pain Present Pain Present Pain Reported Location Right Hip Intensity 4 Scale Used Numeric (0 - 10) Pain Management Techniques Apply Cold,Distraction, Modification of Treatment,Re- positioning,Timing of Activity with Medications M4 PT-IP Mobility and Gait Start: 06/30/23 13:39 Freq: NEEDED Status: Active Protocol: Document 06/30/23 09:00 AB (Rec: 06/30/23 13:50 AB [id number]) PT-Bed Mobility Assessment Supine to Sit Supine to Sit Standby Assistance Sit to Supine Sit to Supine Standby Assistance PT-Transfer Assessment Sit to and From Stand Sit to and from Stand Standby Assistance,Contact Guard Assistance,1 Person Assistance,Use of Upper Extremities Equipment Transfer Assistive Device Gait Belt,Front Wheeled Walker Orthotic/Prosthetic Devices or Brace: No Transfers Transfer Destination Bed,Chair Transfer Technique ambualted Transfer Ability Level of Assist Standby Assistance,Contact Guard Assistance,1 Person Assistance,Use of Upper Extremities Comments Mobility Comments pt supine in bed and agreeable to do PT. obtained PLOF and home set up from pt. post-op folder provided and reviewed contents. educated pt regarding anterior hip precautions and was able to recall after educated. pt completed supine to sit SBA with cues for techniques. pt stated that she has a high bed at home. pt completed sit to stand CGA and ambulated in room ~ 20 ft using FWW CGA and cues. cued for steadiness and R quads activation. occasional cues for hip precautions. elevated pt's bed up to simulate bed height at home. pt sat on EOB. able to scoot up towards the bed and completed sit to supine SBA with cues for techniques. pt completed supine to sit SBA. pt completed sit to stand again SBA and ambulated in room using FWW SBA and wanted to do bed mobility again. pt completed SBA without cues needed. pt transferred to chair using FWW SBA. pt rested. pt agreed to ambulate further in room and completed ~ 40 ft using FWW SBA. pt sat on the chair and agreed to stay up on the chair . pt stated that she can direct spouse on how to assist her. call light and table placed within reach. pt without further concerns. Gait Assessment Gait Gait Assistance Required: Standby Assistance,Contact Guard Assist Distance (Feet) 40 Able to Maintain Weight Bearing Status Yes During Gait Assistive Devices Assistive Device Gait Belt,Front Wheeled Walker Orthotic/Prosthetic Devices or Brace: No Gait Deviations General Gait Pattern Antalgic Factors Limiting Gait Function Factors Limiting Gait Function Decreased Activity Tolerance, Decreased Strength,Limited Range of Motion,Pain,Poor Balance PT-Balance Assessment Sitting Balance and Reactions Static Sitting Balance Ability Normal Dynamic Sitting Balance Ability Good Standing Balance and Reactions Static Standing Balance Ability Fair Dynamic Standing Balance Ability Fair Device Used FWW M5 PT-IP Objective Assessments Start: 06/30/23 13:39 Freq: NEEDED Status: Active Protocol: Document 06/30/23 09:00 AB (Rec: 06/30/23 13:50 [id number]) Orientation Orientation/Cognition Level of Alertness Alert Orientation Name,Age,Place,Situation Language Function Ability No Deficits Noted Safety Awareness Decreased Safety Awareness Memory Description No Deficits Noted Gross Range of Motion Lower Extremity ROM Assessment Within Functional Limits Strength Lower Extremity Strength Assessment Right Impaired Hip 3-/5 Knee 3+/5 Sensation Assessment Sensation Gross Sensation WNL Muscle Tone Muscle Tone WNL Yes M6 PT-IP Treatment Start: 06/30/23 13:39 Freq: NEEDED Status: Active Protocol: Document 06/30/23 09:00 AB (Rec: 06/30/23 13:50 [id number]) Physical Therapy Treatment Exercises Exercises Heel Slides Education Education Provided Precautions,Weight Bearing Status,Post-Op Packet,Safety M7 PT-IP Assessment and Plan Start: 06/30/23 13:39 Freq: NEEDED Status: Active Protocol: Document 06/30/23 09:00 AB (Rec: 06/30/23 13:50 [id number]) PT Summary Assessment and Plan Potential Rehabilitation Potential Good Status of Condition at Evaluation Stable Summary Impairments Pain,ROM,Strength,Balance, Coordination,Sensation,Tone, Cognition,Bed Mobility, Transfers,Gait,Activity Tolerance Assessment Summary pt is a 67 y/o F s/p R MICHELE anterior approach POD 1. pt has R hip anterior precautions and is WBAT. pt requiring SBA with mobility using FWW and plans to go home with spouse to assist her. pt has outpt PT set up. pt may go home when medically stable. Goals Bed Mobility Goal Independent Transfer Goal Independent,Front Wheeled Walker Gait Goal Independent,Front Wheel Walker Gait Distance 300 Days to Meet Goals 5 Frequency of Treatment Frequency Of Treatment Twice a Day Treatment Plan Physical Therapy Treatment Plan Bed Mobility Training,Transfer Training,Gait Training, Therapeutic Exercise,Balance Retraining,Post Op Education, Discharge Planning,Hot or Cold Pack,Neuromuscular Re-ed, Coordination Retraining,Manual Therapy Precautions Anterior Hip Precautions No Hip Extension,No Hip External Rotation Weight Bearing Status Weight Bearing Status Weight Bear as Tolerated Allowed Weight Bearing Amount (enter % RLE WBAT or #) (%) Recommendations To Nursing Amount of Assist Needed Standby Assistance Discharge Recommendations PT Discharge Recommendations Home with Assistance, Outpatient PT Transportation Needs at Discharge Private Vehicle
[2023-06-30] MEDS: ASPIRIN EC 81 MG TABLET PO ×2 (09:20→21:22)
[2023-06-30] MEDS: DOCUSATE 100 MG CAPSULE PO (09:20)
[2023-06-30] MEDS: TRAMADOL 50 MG TABLET PO (09:21)
--- NOTE | 2023-06-30 10:15 | P.DS_ITS ---
History of Present Illness History of Present Illness Date Patient Seen: 06/30/23 Time Patient Seen: 10:15 Chief complaint: Hip pain Narrative: Patient states her hip pain has been [id number]. Patient denies fever chills. No nausea or vomiting. Patient worked with physical therapy this morning. Patient's is home to assist her. Discharge Providers Provider Discharge Date: 06/30/23 Primary care physician: Nirmal Weber MD Consults: 06/29/23 06:00 Consult to Anesthesiology Routine Comment: Consulting Provider: Anesthesiologist Reason for consultation: Regional block for post operative pain control Has provider been notified: No 06/29/23 14:26 Consult to Discharge Planning Routine Comment: Consult to Occupational Therapy Evaluate & Treat Comment: Physician Instructions: Evaluate and treat Consult to Physical Therapy Evaluate & Treat Comment: Physician Instructions: post op MICHELE protocol Discharge provider: Michael Sousa PA-C Summary Hospital Course Discharge Diagnosis: Right hip osteoarthritis Hospital Course: Procedure: Right total hip arthroplasty (10685) Same procedure as scheduled: Yes Surgeon: Andrew Mckeon Head Of Research & Insights: Shira Victoria Anesthesia Type: General and Local Operative Notes Estimated Blood Loss (mL): 500 Procedure in detail: Right Hybrid Direct Anterior Total Hip Arthroplasty with Uncemented Acetabular Component and Cemented Femoral Component: Implants: * Depuy [place] Gription size 52 cup? * Depuy C Stem femoral stem size 2 standard offset? * 36 mm +1.5 ceramic femoral head? Patient admitted to the hospital for right total hip arthroplasty. Patient consented to the same. Patient underwent right total hip arthroplasty June 29, 2023. Patient back in her room recovering well as in stable condition. Mobilize with physical therapy. Anterior hip precautions. Aspirin 81 mg b.i.d. x6 weeks postoperatively for DVT prophylaxis. Discharge home today in stable condition. Status at Discharge Cognitive/behavioral status at discharge: at baseline, oriented Functional status at discharge: uses cane/walker Overall status at discharge: patient is progressing back to baseline Exam Vital Signs (past 8 hours): - 06/30/23 04:45 Temperature 97.6 F Pulse Rate 75 Respiratory Rate 16 Blood Pressure 118/70 Pulse Oximetry 97 Oxygen Flow Rate 0 Oxygen Delivery Method Nasal Cannula Oxygen Flow Rate 0 Objective Labs 06/30/23 06:15 06/29/23 10:08 Labs: Laboratory Results - last 24 hr 04/03/1106/29/23 06/30/23 10:08 14:45 06:15 WBC 16.4 H RBC 3.79 L Hgb 10.2 L 9.4 L Hct 31.5 L 28.2 L MCV 83.2 MCH 26.8 MCHC 32.2 RDW 15.5 H Plt Count 296 Sodium 137 Potassium 3.5 Chloride 107 Carbon Dioxide 27 BUN 16 Creatinine 0.78 Estimated GFR > 60 BUN/Creatinine Ratio 20.5 Glucose 91 Calcium 9.1 PFSH Medical History Osteoarthritis Heart murmur Elevated blood pressure reading without diagnosis of hypertension Hypothyroid Surgical History Hx of colonoscopy Hx of foot surgery History of back surgery (1971) Hx of bilateral cataract extraction Social History household members: spouse Smoking Status: Never smoker alcohol intake: current Discharge Assessment & Plan Assessment and Plan Assessment: Patient progressing as expected Plan of Treatment: Multimodal pain management Weight-bearing as tolerated, anterior hip precautions Aspirin 81 mg b.i.d. for DVT prophylaxis x6 weeks Discharge home today in stable condition Discharge Plan Discharge Plan Provider Discharge Comment: h [email or web address] Discharge orders & Medications Discharge Orders: Discharge (Order); Ordered 06/30/23 Ordered By: Michael Sousa Prescriptions: New acetaminophen 325 mg Tablet 650 mg PO Q6H Qty: 60 0RF aspirin 81 mg Tablet,Delayed Release (Dr/Ec) 81 mg PO BID Qty: 60 0RF Rx Instructions: Continue 81 mg b.i.d. x6 weeks postoperatively ibuprofen 600 mg Tablet 600 mg PO Q6H Qty: 60 0RF Continued levothyroxine 75 mcg Tablet 75 mcg PO DAILY docusate sodium 100 mg capsule 100 mg PO BID PRN (Reason: constipation) tramadol 50 mg tablet 50 mg PO Q6H PRN (Reason: pain) Discontinued naproxen sodium [Aleve] 220 mg Capsule 220 mg PO BID ibuprofen 600 mg tablet 600 mg PO Q8H PRN (Reason: pain) Follow up/Referrals: Andrew Mckeon MD [Physician] - (Follow up at [facility] as scheduled in 2 weeks. ) Nirmal Weber MD [Primary Care Provider] - Diet/Activity/Treatments Diet: Diet as Tolerated Cold/Heat Therapy: Ice to the hip for additional pain control Skin/Wound/Dressing Care Report to your healthcare provider any signs of infection, such as:: chills, fever, night sweats, unusual drainage and unusual redness Dressing: Keep dressing intact, clean and dry until 2 week post-op appointment. No soaking the incision site in pools or tubs. No topical ointments or creams to the incision site. Special Rehabilitation Services Reason for rehabilitation: Post-operative therapy Rehab type: Physical therapy Restrictions to mobility: Weight-bearing as tolerated, maintain anterior hip precautions Visit Report/Discharge Packet Instructions: DI for Hip Replacement, DI for Prescription Opioid Use Stand Alone Forms: Patient Portal/API, Surgery Discharge Discharge Data Primary Care Provider: Nirmal Weber Attending Provider: Andrew Mckeon Quality VTE Deep Vein Thrombosis/Pulmonary Embolism Present on Admission: No
--- NOTE | 2023-06-30 10:54 | CM.DANOTE ---
Addendum entered by Virginia Chaves R.N. 06/30/23 13:24: A rapid response had been called in patient's room earlier. Checked in with patient, she is alert, in bed, spouse at bedside. DC orders were removed. Stated, when she got up, she had felt dizzy, and could not hear. Stated, her blood pressure was quite low. Spouse indicated that she has a negative reaction to opioids. Patient will stay another day, should be able to discharge home tomorrow. Original Note: DCP: Case received, EMR reviewed and met with patient. Introduced self and role. Was able to obtain information regarding patient's baseline activity level prior to surgery. DCP assessment completed with information currently available. Patient is a 67 year old female who admitted yesterday morning to the care of the orthopedic team. PCP: Dr. Weber. Payer: confirmed: [facility]. Patient came to the hospital for a surgical procedure. Patient had anterior total hip arthroplasty. Patient has history of right hip osteoarthritis. Met with patient in her room. She is pleasant, was sitting up in her chair. Confirmed that she resides with her spouse, Larry, on [facility]. At her baseline, she is independent, and walks about 5 miles a day. Confirmed that her spouse will be assisting her when she goes home. P: Patient has discharge orders for home today, she has worked with Rajesh Chaves RN/Bag Checker Discharge Planning/Care Management CM Discharge Assessment Start: 06/30/23 10:52 Freq: Status: Active Protocol: Document 06/30/23 10:52 (Rec: 06/30/23 10:54 [id number]) Discharge Planning Assessment Assigned Regional Facilities Manager Virginia Chaves RN/Bag Checker Advance Directives? Yes Advance Directives on File Yes History Provided By Patient,Medical Record Prior Living Arrangements House Household Members spouse Type of transporation used prior to Drives own vehicle admit Independent with ADL's Yes Is patient alert and oriented? Yes Caregiver for Another No Patient/Family Preference OP PT Therapy Barriers to Discharge No Discharge Plan Home Transportation Arrangement Spouse Referrals Initiated None needed Whiteboard Updated in Patient Room with Yes name and ext. # of Regional Facilities Manager Review Status In Process Next Review Type Continued Stay Review Pre-Anesthesia Assessment Start: 06/20/23 12:40 Freq: Status: Complete Protocol: Document 06/20/23 12:40 CAB (Rec: 06/20/23 13:25 CAB [id number]) Pre-Anesthesia Assessment Patient Information Reviewed Via Phone Assessment Assessment Completed With Patient Diagnostic Results BMP/CMP,CBC,EKG Comment Labs/EKG @ [facility] 05/01/23 Primary Care Provider Nirmal Weber Comment Clearance form 05/01/23 scanned and in surgery folder Seen Specialist in Last 12 Months Yes Specialist Seen Orthopedist Primary Language Turkmen Builder'S Labourer Required No Height 5 ft 1 in Weight 107 lb Body Mass Index (BMI) 20.2 Hearing Ability Normal Visual Assist Glasses Dentition Type Teeth, Natural Present Barriers to Learning None Hx Anesthesia Reactions No: Woke up x 2 during colonoscopy Hx Family Anesthesia Reaction No Hx Malignant Hyperthermia No Hx Blood Transfusions No Anesthesia Review Requested No Excel Vba Developer No alcohol intake current alcohol intake frequency a few times a week Smoking Status Never smoker Substance Use Type marijuana Comment Pt advised not to smoke marijuana 24 hours prior Pain Present Pain Reported Musculoskeletal Symptoms Abnormal Gait,Difficulty Walking,Joint Pain,Neck Pain History of Falling (Recent or History of Yes ) Patient is completely paralyzed or No completely immobile Mental Status Oriented to own ability Is patient on oxygen? No Does patient have PIMENTEL/SOB No Hx Sleep Apnea No Currently Taking a Beta Casi No Can You Climb a Flight of Stairs Without Yes SOB Hx Chest Pain No Hx SOB No Hx Syncope or Dizziness No Anti-Coagulant Therapy No Has a Hull Drafter No Cardiac Testing No Hx Pacemaker/ICD No Pacemaker Rep Required? No Cardiac Clearance Received Not Applicable Diet Type At Home Regular,Vegetarian Dysphagia No Gastrointestinal Symptoms Diarrhea Urinary Catheter Present No Hx Urinary Self Catheterization No Diabetes No HgbA1C 5.9 Date 05/01/23 Patient No Lactating No Hx Drug Resistant Organism No Presence of External or Internal Medical Yes: Bilat eye IOLs Devices Received a COVID vaccine? Yes Received all doses? Yes Marital Status Lives With spouse Current Living Arrangements House Number of Floors (Floors) Two Floors Support System Spouse Does the Patient Have Assistance After Yes Surgery Patient Discharge Plan Description Return Home Comment Pt advised overnight length of stay per surgeon Additional comment Lives on [facility] Feels Safe in Current Environment Yes Been Physically Hurt or Threatened By a No Person in Current Environment Do you have thoughts of harming yourself None or others? Are you currently considering suicide? No Do you have a plan to hurt yourself or No Plan others? Do You Have Any Spiritual Beliefs That No May Affect Your HC Choices? Do You Have Any Cultural Practices That No May Affect Your HC Choices? Who Can We Speak to About Patient's Care Family, friends Identifying Code for Release of Patient Declines to issue Information Health Care Proxy/Next of Kin Ayaz () Health Care Proxy Emergency Contact Name Ayaz () Emergency Contact Advance Directives? Yes Advance Directives on File Yes Power of Human Resource Adviser No PAC Instructions Do not shave/clip surgical site,Durable medical equipment ,Medications to take/avoid, Nasal antibiotic,No ETOH/ petroleum product on skin DOS, NPO,Pre-surgical wash,Sensory aids,Sturdy shoes/comfortable clothes,Do not bring valuables and remove jewelry
--- NOTE | 2023-06-30 11:10 | PM.CALLCOV.1 ---
Call Coverage Note Note Narrative of Care Provided: 67 F s/p R total hip. Plan to discharge today. Patient sitting upright in chair, became light headed, lethargic, BP very low. Rapid response called. Moved patient to bed in reverse trendelenberg. BP improved, patient felt better. She reports no palpitations, chest pain, shortness of breath. Ordered 1L NS bolus. Check orthostatics after bolus completed. h/h down to 9.4 this AM from 12, likely hypovolemic from blood loss due to surgery.
[2023-06-30] MEDS: OXYCODONE IR 5 MG TABLET PO (15:00)
--- NOTE | 2023-06-30 15:46 | PC.NURSE ---
This RN and MOTOR VEHICLE OR CARAVAN SALESPERSON responded to the pt's call light at 1054 this morning and was found sitting in the chair, appearing extremely pale in color, sitting slouched in the chair and started to slum over in the chair at which point this RN called at rapid response at 1055. This RN and assigned MOTOR VEHICLE OR CARAVAN SALESPERSON were already in the room when hospitalist--Dr. Porras, RN coordinator--Iris, and other acute care RNs and staff showed up to assist. This RN and other staff members safely transferred the pt from the chair into the bed, while taking care of anterior hip replacement precautions and then the pt's bed was placed in trendelenburg position. The pt's initial BP was 63/36 MAP 64 HR 58 while in the chair. Pt's BP with the bed in trendelenburg position was 108/66 MAP 77 HR 64 at 1100. Pt's repeat BP at 1105 was 97/58 MAP 71 SpO2 99% on room air and HR 71. Pt's mentation and speech became clearer once she was placed in the trendelenburg position and significant improved after being in the trendelenburg position for approximately five minutes. Dr. Porras ordered a bolus, pt's vital signs improved. After the bolus pt's repeat orthostatic BPs taken at 12:45 are as follows: Supine 132/73 Sitting 134/77 standing 113/66
--- NOTE | 2023-06-30 15:47 | RT ---
Called to Room 215 for Rapid Response. Upon arrival pt being helped to bed, airway patent and no distress noted. Pt on room air.
--- NOTE | 2023-06-30 18:13 | PT-IP ANOTE ---
pt not seen for PT pm session. pt was scheduled to d/c this morning but found pt still in room. checked with pt and stated that she was about to d/c but her BP went down and she was not feeling well and she will stay for the night. pt currently eating dinner. will f/u tomorrow.
[2023-07-01] MEDS: LEVOTHYROXINE 75 MCG TABLET PO (06:08)
[2023-07-01 08:00] VITALS: BP 134/73; PULSE 91; RESP 16; TEMP 36.3; O2SAT 98
[2023-07-01] MEDS: IBUPROFEN 600 MG TABLET PO (08:25)
[2023-07-01] MEDS: ACETAMINOPHEN 325 MG TABLET 650 MG PO (08:25)
[2023-07-01] MEDS: ASPIRIN EC 81 MG TABLET PO (08:26)
--- NOTE | 2023-07-01 11:05 | PT.IPTN ---
Current Diagnoses Unilateral primary osteoarthritis, right hip (06/29/23) Surgery Performed Operation Date: 06/29/23 10:45 Actual Procedures p Total Hip Arthroplasty/Anterior Approach(Right) - Andrew Mckeon MD Physical Therapy Treatment Note M2 PT-IP Current Condition Start: 06/30/23 13:39 Freq: NEEDED Status: Active Protocol: Document 06/30/23 09:00 AB (Rec: 06/30/23 13:50 AB [id number]) Physical Therapy Current Condition Current Condition Evaluation Date 06/30/23 Treatment Diagnosis s/p R MICHELE anterior; difficulty in walking Onset Date 06/29/23 M3 PT-IP Subjective Start: 06/30/23 13:39 Freq: NEEDED Status: Active Protocol: Document 07/01/23 10:45 KS (Rec: 07/01/23 12:02 KS [id number]) Subjective Physical Therapy Visit Type Type Treatment Note Visit Start Time 10:45 Visit Stop Time 11:05 Notes family present during treatment. Number of ASSET AVAILABILITY LEADER Visits 1 Physical Therapy Visit Comments Patient Comments agreeable to do PT M4 PT-IP Mobility and Gait Start: 06/30/23 13:39 Freq: NEEDED Status: Active Protocol: Document 07/01/23 10:45 KS (Rec: 07/01/23 12:02 KS [id number]) PT-Transfer Assessment Sit to and From Stand Sit to and from Stand Standby Assistance,1 Person Assistance,Use of Upper Extremities Equipment Transfer Assistive Device Gait Belt,Front Wheeled Walker Orthotic/Prosthetic Devices or Brace: No Transfers Transfer Destination Chair Transfer Technique ambualted Transfer Ability Level of Assist Standby Assistance,Contact Guard Assistance,1 Person Assistance,Use of Upper Extremities Comments Mobility Comments Pt in chair upon arrival from PT. Stating she feels much better today and BP is stable. SBA for sit<>stand w/ FWW, pt then ambulated ~[address] w/ FWW SBA to CGA. Pt returned to room and chair, expressed some fatigue but overall feeling good. No stairs to enter home, has 24/7 assistance, and outpt pt set up. Reveiwed at home safety and exercises. Pt left in bed w/ all need in reach. Gait Assessment Gait Gait Assistance Required: Standby Assistance,Contact Guard Assist Distance (Feet) 150 Able to Maintain Weight Bearing Status Yes During Gait Assistive Devices Assistive Device Gait Belt,Front Wheeled Walker Orthotic/Prosthetic Devices or Brace: No Gait Deviations General Gait Pattern Antalgic Factors Limiting Gait Function Factors Limiting Gait Function Decreased Activity Tolerance, Decreased Strength,Limited Range of Motion,Pain,Poor Balance Comments Gait Comments Good carryover of precations while ambulating and appropriate use of FWW. Stair Climbing Assessment Comments Stair Climbing Comments no stairs at home. PT-Balance Assessment Sitting Balance and Reactions Static Sitting Balance Ability Normal Dynamic Sitting Balance Ability Good Standing Balance and Reactions Static Standing Balance Ability Fair Dynamic Standing Balance Ability Fair Device Used FWW M5 PT-IP Objective Assessments Start: 06/30/23 13:39 Freq: NEEDED Status: Active Protocol: Document 06/30/23 09:00 AB (Rec: 06/30/23 13:50 AB [id number]) Orientation Orientation/Cognition Level of Alertness Alert Orientation Name,Age,Place,Situation Language Function Ability No Deficits Noted Safety Awareness Decreased Safety Awareness Memory Description No Deficits Noted Gross Range of Motion Lower Extremity ROM Assessment Within Functional Limits Strength Lower Extremity Strength Assessment Right Impaired Hip 3-/5 Knee 3+/5 Sensation Assessment Sensation Gross Sensation WNL Muscle Tone Muscle Tone WNL Yes M6 PT-IP Treatment Start: 06/30/23 13:39 Freq: NEEDED Status: Active Protocol: Document 07/01/23 10:45 KS (Rec: 07/01/23 12:02 KS [id number]) Physical Therapy Treatment Exercises Exercises Ankle Pumps,Gluteal Sets,Quad Sets,Heel Slides,Straight Leg Raises Education Education Provided Precautions,Weight Bearing Status,Post-Op Packet,Safety M7 PT-IP Assessment and Plan Start: 06/30/23 13:39 Freq: NEEDED Status: Active Protocol: Document 07/01/23 10:45 KS (Rec: 07/01/23 12:02 ID [id number]) PT Summary Assessment and Plan Potential Rehabilitation Potential Good Summary Impairments Pain,ROM,Strength,Balance, Coordination,Sensation,Tone, Cognition,Bed Mobility, Transfers,Gait,Activity Tolerance Progress Towards Goals Progressing Toward Goals Assessment Summary Pt showing good progress today and has no BP issues. Feels ready and eager to return home . HAs good family support, ambulated 150 ft w/ FWW. Will benefit from OPPT. Goals Bed Mobility Goal Independent Transfer Goal Independent,Front Wheeled Walker Gait Goal Independent,Front Wheel Walker Gait Distance 300 Days to Meet Goals 5 Frequency of Treatment Frequency Of Treatment Twice a Day Treatment Plan Physical Therapy Treatment Plan Bed Mobility Training,Transfer Training,Gait Training, Therapeutic Exercise,Balance Retraining,Post Op Education, Discharge Planning,Hot or Cold Pack,Neuromuscular Re-ed, Coordination Retraining,Manual Therapy Precautions Anterior Hip Precautions No Hip Extension,No Hip External Rotation Weight Bearing Status Weight Bearing Status Weight Bear as Tolerated Allowed Weight Bearing Amount (enter % RLE WBAT or #) (%) Recommendations To Nursing Amount of Assist Needed Standby Assistance Discharge Recommendations PT Discharge Recommendations Home with Assistance, Outpatient PT Transportation Needs at Discharge Private Vehicle
--- NOTE | 2023-07-01 11:29 | PM.PN.1 ---
Exam Vital Signs (past 8 hours): - 07/01/23 08:00 Temperature 97.3 F L Pulse Rate 91 H Respiratory Rate 16 Blood Pressure 134/73 Pulse Oximetry 98 Oxygen Flow Rate 0 Oxygen Delivery Method Nasal Cannula Oxygen Flow Rate 0 Objective Labs 06/30/23 06:15 06/29/23 10:08 [facility] Medical History Osteoarthritis Heart murmur Elevated blood pressure reading without diagnosis of hypertension Hypothyroid Surgical History Hx of colonoscopy Hx of foot surgery History of back surgery (1971) Hx of bilateral cataract extraction Social History household members: spouse Smoking Status: Never smoker alcohol intake: current Assessment & Plan Assessment & Plan narrative: POD#2 s/p R MICHELE. Patient is doing well. On exam, her RLE NVI w/o s/s of DVT. Patient is cleared for d/c to home. Quality VTE Deep Vein Thrombosis/Pulmonary Embolism Present on Admission: No
--- NOTE | 2023-07-01 11:37 | CM.DPNOTE ---
DCP Note MANAGER OF BUSINESS OPERATIONS reviewed EMR. Per RN, pt did better overnight. anticipates home today with spouse. No additional DCP needs identified. Per chart review, pt denied DCP needs. Plan: home today with spouse. no identified CM needs. CM team will follow as needed. EVELIN Napier
== END 2023-07-01 12:25 | disposition home or self-care (01) ==
LOC: OR 09:01 → AC 09:02
PROVIDERS: Nurse Anesthetist, Certified Registered; PCP Family Medicine; Referring Provider Orthopaedic Surgery Adult Reconstructive Orthopaedic Surgery; Visit Provider Orthopaedic Surgery Adult Reconstructive Orthopaedic Surgery
PROC: (CPT 27130; principal; 2023-06-29 10:45)
DX: M16.11 Unilateral primary osteoarthritis, right hip (principal)
CPT/HCPCS: 27130; 36415; 73502; 76000; 80048; 85014; 85018; 85027; 97116; 97161; 97530; C1776; J0690; J1100; J1170; J2405; J2704; J3410

== ENCOUNTER → 2024-08-05 14:36 | Outpatient (CLI) | payer MEDICARE, SELFPAY ==
--- NOTE | 2024-08-05 14:40 | DI.RAD.S_ITS ---
PROCEDURE: XR SHOULDER RT MIN 2V INDICATIONS: right shoulder pain TECHNIQUE: 3 views of the shoulder were acquired. COMPARISON: None. FINDINGS: Bones: No fractures or dislocations. Mild acromioclavicular and glenohumeral joint degeneration. No suspicious bony lesions. Visualized ribs appear intact. Soft tissues: No suspicious soft tissue calcifications. IMPRESSION: Mild degenerative changes of the shoulder. No acute osseous abnormalities. Dictated by: Yaakov Rodriguez M.D. on 08/05/2024 at 15:25 Approved by: Yaakov Rodriguez M.D. on 08/05/2024 at 15:29
== END ==
PROVIDERS: PCP Family Medicine; Referring Provider Family Medicine; Visit Provider Orthopaedic Surgery
DX: M25.511 Pain in right shoulder (principal); M19.011 Primary osteoarthritis, right shoulder
CPT/HCPCS: 73030

== ENCOUNTER → 2024-09-15 07:25 | Outpatient (CLI) | payer MEDICARE, SELFPAY ==
[2024-09-15 08:38] LABS: Add Manual Diff / Slide Review NO; Basophils Absolute Auto 100 /uL (0-100); Basophils Percent Auto 1.4 % (0-2); Eosinophils Absolute Auto 200 /uL (0-450); Eosinophils Percent Auto 4.7 % (2-4); Hematocrit 28.8 % (36-46); Lymphocytes Absolute Auto 1000 /uL (1100-4500); Lymphocytes Percent Auto 19.4 % (25-40); Mean Corpuscular HGB Conc 31.3 % (30-36); Mean Corpuscular Volume 63.8 fL (80-100); Monocytes Absolute Auto 400 /uL (0-900); Monocytes Percent Auto 7.5 % (3-14); Neutrophils Absolute Auto 3400 /uL (1500-7000); Platelet Count 363 X10^3/uL (150-400); Red Blood Cell Count 4.51 X10^6/uL (4.0-5.2); Red Cell Distribution Width 19.8 % (11.6-14.8); White Blood Cell Count 5.1 X10^3/uL (4.5-11.0)
[2024-09-15 08:43] LABS: Hemoglobin A1C% w Est Avg Glu 5.3 % (4.0-6.0)
[2024-09-15 08:49] LABS: Anisocytosis 2+
[2024-09-15 08:50] LABS: Microcytosis 2+
[2024-09-15 09:00] LABS: Alanine Aminotransferase 14 IU/L (<35); Albumin 4.3 g/dL (3.5-5.0); Albumin Globulin Ratio 1.8 (1.0-2.8); Alkaline Phosphatase 117 U/L (38-126); Aspartate Aminotransferase 25 IU/L (14-36); BUN Creatinine Ratio 16.3 (6-22); Bilirubin Total 1.1 mg/dL (0.2-1.3); Blood Urea Nitrogen 13 mg/dL (7-17); Calcium 9.3 mg/dL (8.4-10.2); Carbon Dioxide 24 mmol/L (22-32); Chloride 105 mmol/L (98-107); Cholesterol 239 mg/dL (140-199); Estimated Glomerular Filt Rate > 60 mL/min (>60); Globulin 2.4 g/dL (1.7-4.1); Glucose 96 mg/dL (70-99); HDL Cholesterol 57 mg/dL (40-60); HEMOLYSIS < 15 (0-50); LDL Cholesterol Calculated 151 mg/dL (<100); Potassium 4.1 mmol/L (3.4-5.1); Sodium 137 mmol/L (137-145); Total Protein 6.7 g/dL (6.3-8.2); Triglycerides 153 mg/dL (35-150)
[2024-09-15 09:34] LABS: Ferritin 5 ng/mL (11-264)
== END ==
PROVIDERS: PCP Family Medicine; Referring Provider Family Medicine; Visit Provider Family Medicine
DX: E03.9 Hypothyroidism, unspecified (principal); R73.03 Prediabetes
CPT/HCPCS: 36415; 80053; 80061; 82728; 83036; 83735; 85025